=== PATIENT | male | born 1990 | race Hispanic/Latino ===

== ENCOUNTER 2018-07-11 09:15 | Emergency (ER) | payer SELFPAY ==
[~2018-07-11] VITALS: Ht 182.9 cm; Wt 104.3 kg
[2018-07-11] MEDS ORDERED: ONDANSETRON HCL 4 MG ORAL DISINTEGRATING TAB PO ONE (09:30)
[2018-07-11] MEDS ORDERED: CYCLOBENZAPRINE HCL 10 MG TAB PO ONE (09:30)
[2018-07-11] MEDS ORDERED: HYDROCODONE/APAP 5MG-325MG TAB PO ONE (09:30)
--- NOTE | 2018-07-11 09:57 | Diagnostic Imaging Report ---
EXAMINATION: PA and lateral views of the chest. COMPARISON: None CLINICAL HISTORY: Back pain between shoulder blades DISCUSSION: The lungs are well-inflated. No focal airspace consolidation, pleural effusion, or pneumothorax. Cardiomediastinal contour and pulmonary vasculature are within normal limits. No acute osseous abnormality. IMPRESSION: No acute cardiopulmonary abnormalities. Signed by: Dr. Bertin Dela Cruz M.D. on 07/11/2018 9:53 AM
[2018-07-11 10:03] VITALS: BP 125/75
== END 2018-07-11 09:45 | disposition home or self-care (01) ==
LOC: FSED 09:15
DX: R07.89 Other chest pain (principal); M54.6 Pain in thoracic spine; R06.00 Dyspnea, unspecified; X50.1XXA Overexertion from prolonged static or awkward postures, initial encounter; Y92.008 Other place in unspecified non-institutional (private) residence as the place of occurrence of the external cause
CPT/HCPCS: 71046; 99283; Q0162